=== PATIENT | male | born 1945 | race Caucasian/White ===

== ENCOUNTER 2018-02-18 17:09 | Emergency (ER) | payer MEDICARE ==
[~2018-02-18] VITALS: Ht 188 cm; Wt 145.2 kg
[~2018-02-18 17:09] MED LIST: AZITHROMYCIN 2250 MG PO; CLONAZEPAM; COUMADIN 1MG TAB1 M1 PO; IBUPROFEN 600600 M1 PO; SIMVASTATIN40 MG PO; TYLENOL EX-STR500 M2 PO
[2018-02-18 17:29] LABS: ABSOLUTE EOSINOPHILS 0.2 thou/uL (0.0-0.7); ABSOLUTE LYMPHOCYTES 1.5 thou/uL (0.8-5.3); ABSOLUTE MONOCYTES 0.9 thou/uL (0.0-1.2); ABSOLUTE NEUTROPHILS 5.2 thou/uL (1.6-8.1); BASOPHILS 0.6 %; EOSINOPHILS 2.7 %; HEMATOCRIT 44.5 % (42.0-52.0); HEMOGLOBIN 14.9 gm/dL (14.0-18.0); LYMPHOCYTES 18.9 %; MCH 28.4 pg (26.0-34.0); MCHC 33.5 g/dL (28.0-37.0); MCV 84.9 fL (80.0-100.0); MONOCYTES 11.9 %; NUCLEATED RBCS 0 /100WBC; PLATELET COUNT* 213 thou/uL (150-400); POLYS 65.9 %; RBC 5.24 mil/uL (4.50-6.00); RDW-CV 15.1 % (10.5-14.5); WBC 7.9 thou/uL (4.0-11.0)
[2018-02-18] MEDS ORDERED: KEFLEX500 M1 PO (17:38)
[2018-02-18 18:03] LABS: APTT 33.1 Seconds (25.0-31.3); INR 1.6; PROTIME 16.6 Seconds (9.20-11.50)
[2018-02-18 18:22] VITALS: BP 144/76
== END 2018-02-18 18:23 | disposition home or self-care (01) ==
LOC: M.ERS 17:09
PROVIDERS: Physician Assistant
DX: S91.311A Laceration without foreign body, right foot, initial encounter (principal); M13.849 Other specified arthritis, unspecified hand; F32.9 Major depressive disorder, single episode, unspecified; E78.5 Hyperlipidemia, unspecified; W22.09XA Striking against other stationary object, initial encounter; Y93.89 Activity, other specified; Y92.89 Other specified places as the place of occurrence of the external cause; Y99.8 Other external cause status